=== PATIENT | female | born 1960 | race Asian ===

== ENCOUNTER 2018-01-31 13:26 | Outpatient (CLI) | payer BC | END 2018-01-31 13:27 | disposition home or self-care (01) | LOC: BICMAMMO 13:26 | PROVIDERS: ATTEND Obstetrics & Gynecology | DX: Z12.31 Encounter for screening mammogram for malignant neoplasm of breast (principal); Z80.3 Family history of malignant neoplasm of breast | CPT/HCPCS: 77063; 77067 ==

== ENCOUNTER 2018-02-03 11:06 | Outpatient (CLI) | payer BC | END 2018-02-03 11:07 | disposition home or self-care (01) | LOC: BICRAD 11:06 | PROVIDERS: ATTEND Internal Medicine Medical Oncology | DX: D72.1 Eosinophilia (principal) | CPT/HCPCS: 71046 ==

== ENCOUNTER 2018-04-10 14:02 | Outpatient (CLI) | payer BC ==
--- NOTE | 2018-04-10 16:49 | BD ---
DEXA BONE DENSITY: HISTORY: A 53-year-old postmenopausal female. Screening study. COMPARISON: 11/23/2013 and 12/24/2016. FINDINGS: LUMBAR SPINE BMD (g/cm2) T-SCORE Z-SCORE L1 0.962 -0.3 0.8 L2 0.974 -0.5 0.7 L3 0.978 -1.0 0.3 L4 0.904 -1.4 -0.2 TOTAL 0.950 -0.9 0.3 11/23/2013: 0.939 -1.0 12/24/2016: 0.942 -1.0 BMD CHANGE VERSUS BASELINE: +1.2% BMD CHANGE VERSUS PREVIOUS: +0.9% FEMORAL NECK 0.728 -1.1 0.0 TOTAL FEMUR 0.901 -0.3 0.4 11/23/2013: 0.730 -1.1 12/24/2016: 0.696 -1.4 BMD CHANGE VERSUS BASELINE: -0.2% BMD CHANGE VERSUS PREVIOUS: +4.6% IMPRESSION: 1. Lumbar spine WHO classification is normal. Fracture risk is not increased. 2. Femoral neck WHO classification is osteopenia. 3. Ten year fracture risk for major osteoporotic fracture is 3.4% and hip fracture is 0.2%. POS: JOSE
== END 2018-04-10 14:03 | disposition home or self-care (01) ==
LOC: BICMAMMO 14:02
PROVIDERS: ATTEND Internal Medicine
DX: Z13.820 Encounter for screening for osteoporosis (principal); M85.869 Other specified disorders of bone density and structure, unspecified lower leg; Z78.0 Asymptomatic menopausal state
CPT/HCPCS: 77080

== ENCOUNTER 2019-01-18 12:58 | Outpatient (CLI) | payer BC ==
--- NOTE | 2019-01-18 14:20 | ULT ---
Exam: Left upper extremity nonvascular ultrasound: HISTORY: Left upper arm pain, concern for long head biceps tendon tear. Visualization of the upper biceps muscle and at least portions of the biceps tendon demonstrate no ev idence for intramuscular hematoma or abnormal fluid collection. The partially visualized biceps tendon appears to be intact within the bicipital groove. There is an approximately 0.[address] probably partially calcified nodular density in the region of the shoulder joint although its exact location cannot be definitively determined. This could represent some type of intra-articular o r periarticular faint calcific focus or focal area of calcific peritendinitis. A follow-up left shoulder MRI is recommended for further assessment which would allow much better anatomic detail be d emonstrated. IMPRESSION: Partially visualized biceps tendon appears to be intact within the bicipital groove indicating a lack of a complete full-thickness retracted tear. Possible calcific focus, exact location and etiology cannot be determined, consider follow-up left sh oulder MRI for further assessment.
== END 2019-01-18 12:59 | disposition home or self-care (01) ==
LOC: ULT 12:58
PROVIDERS: ATTEND Family Medicine
DX: M79.89 Other specified soft tissue disorders (principal)
CPT/HCPCS: 76881

== ENCOUNTER 2019-02-15 16:10 | Outpatient (CLI) | payer BC ==
--- NOTE | 2019-02-15 16:33 | MMO ---
Bilateral MAMMO Bilat Screen [facility]. CLINICAL HISTORY: Patient is 58 years old and is seen for screening. The patient has no personal history of cancer. VIEWS: The views performed were: bilateral craniocaudal with tomosynthesis and bilateral mediolateral oblique with tomosynthesis. FILMS COMPARED: The present examination has been compared to prior imaging studies performed at [facility] on 08/26/2014, 08/29/2015, 01/03/2017 and 01/31/2018. MAMMOGRAM FINDINGS: The breasts are heterogeneously dense, which could obscure a lesion on mammography. There are stable benign appearing calcifications seen in both breasts. There are no suspicious masses, suspicious calcifications, or new areas of architectural distortion. IMPRESSION: THERE IS NO MAMMOGRAPHIC EVIDENCE OF MALIGNANCY. A ROUTINE FOLLOW-UP MAMMOGRAM IN 1 YEAR IS RECOMMENDED. THE RESULTS OF THIS EXAM WERE SENT TO THE PATIENT. ACR BI-RADS Category 2 - Benign finding MAMMOGRAPHY NOTE: 1. A negative mammogram report should not delay a biopsy if a dominant of clinically suspicious mass is present. 2. Approximately 10% to 15% of breast cancers are not detected by mammography. 3. Adenosis and dense breasts may obscure an underlying neoplasm. Reported by: SELVIN LE MD Electonically Signed: [id number]
== END 2019-02-15 16:11 | disposition home or self-care (01) ==
LOC: BICMAMMO 16:10
PROVIDERS: ATTEND Obstetrics & Gynecology
DX: Z12.31 Encounter for screening mammogram for malignant neoplasm of breast (principal)
CPT/HCPCS: 77063; 77067

== ENCOUNTER 2020-03-04 11:27 | Outpatient (CLI) | payer BC ==
--- NOTE | 2020-03-04 13:14 | MMO ---
Bilateral MAMMO Bilat Screen [facility]. CLINICAL HISTORY: Patient is 59 years old and is seen for screening. The patient has the following family history of breast cancer: maternal aunt. The patient has no personal history of cancer. VIEWS: The views performed were: bilateral craniocaudal with tomosynthesis and bilateral mediolateral oblique with tomosynthesis. FILMS COMPARED: The present examination has been compared to prior imaging studies performed at [facility] on 08/29/2015, 01/03/2017, 01/31/2018 and 02/15/2019. This study has been interpreted with the assistance of computer-aided detection. MAMMOGRAM FINDINGS: The breasts are heterogeneously dense, which could obscure a lesion on mammography. Finding 1: There are stable benign appearing calcifications seen in both breasts. Finding 2: There are stable benign appearing densities seen in both breasts. There are no suspicious masses, suspicious calcifications, or new areas of architectural distortion. IMPRESSION: THERE IS NO MAMMOGRAPHIC EVIDENCE OF MALIGNANCY. A ROUTINE FOLLOW-UP MAMMOGRAM IN 1 YEAR IS RECOMMENDED. THE RESULTS OF THIS EXAM WERE SENT TO THE PATIENT. ACR BI-RADS Category 2 - Benign finding MAMMOGRAPHY NOTE: 1. A negative mammogram report should not delay a biopsy if a dominant of clinically suspicious mass is present. 2. Approximately 10% to 15% of breast cancers are not detected by mammography. 3. Adenosis and dense breasts may obscure an underlying neoplasm. Reported by: ALPESH GARNETT MD Electonically Signed: [id number]
== END 2020-03-04 11:28 | disposition home or self-care (01) ==
LOC: BICMAMMO 11:27
PROVIDERS: ATTEND Family Medicine
DX: Z12.31 Encounter for screening mammogram for malignant neoplasm of breast (principal); Z80.3 Family history of malignant neoplasm of breast
CPT/HCPCS: 77063; 77067

== ENCOUNTER 2021-03-13 13:00 | Outpatient (CLI) | payer BC | END 2021-03-13 13:01 | disposition home or self-care (01) | LOC: BICMAMMO 13:00 | PROVIDERS: ATTEND Obstetrics & Gynecology | DX: Z12.31 Encounter for screening mammogram for malignant neoplasm of breast (principal); Z80.3 Family history of malignant neoplasm of breast | CPT/HCPCS: 77063; 77067 ==

== ENCOUNTER 2021-03-19 10:06 | Outpatient (CLI) | payer BC | END 2021-03-19 10:07 | disposition home or self-care (01) | LOC: BICMAMMO 10:06 | PROVIDERS: ATTEND Obstetrics & Gynecology | DX: Z13.820 Encounter for screening for osteoporosis (principal); M85.89 Other specified disorders of bone density and structure, multiple sites | CPT/HCPCS: 77080 ==

== ENCOUNTER 2022-06-01 14:34 | Outpatient (CLI) | payer BC | END 2022-06-01 14:35 | disposition home or self-care (01) | LOC: BICRAD 14:34 | PROVIDERS: ATTEND Internal Medicine | DX: R05.9 Cough, unspecified (principal) | CPT/HCPCS: 71046 ==

== ENCOUNTER 2025-04-26 07:55 | Outpatient (CLI) | payer BC | END 2025-04-26 07:56 | disposition home or self-care (01) | LOC: SCSBT 07:55 | PROVIDERS: ATTEND Internal Medicine | DX: Z78.0 Asymptomatic menopausal state (principal); M85.851 Other specified disorders of bone density and structure, right thigh; M85.852 Other specified disorders of bone density and structure, left thigh | CPT/HCPCS: 77080 ==